=== PATIENT | male | born 1980 | race Two or more races ===

== ENCOUNTER 2020-09-14 18:05 | Emergency (ER) | payer MEDICAID ==
[~2020-09-14] VITALS: Ht 182.9 cm; Wt 111.0 kg
[2020-09-14] MEDS ORDERED: ALLO100T PO (18:14)
[2020-09-14 18:15] VITALS: BP 145/96
[2020-09-14] MEDS ORDERED: NAPROXEN 250MG TABLET PO ONE (18:30)
[2020-09-14] MEDS ORDERED: COLCHICINE 0.6MG TABLET PO ONE (18:30)
[2020-09-14] MEDS ORDERED: INDO50CA98 MT (18:31)
== END 2020-09-14 18:57 | disposition home or self-care (01) ==
LOC: ER 18:13
DX: M10.071 Idiopathic gout, right ankle and foot (principal); R03.0 Elevated blood-pressure reading, without diagnosis of hypertension
CPT/HCPCS: 73630; 99283

== ENCOUNTER 2021-09-09 17:59 | Emergency (ER) | payer MEDICAID ==
[~2021-09-09] VITALS: Ht 180.3 cm; Wt 111.0 kg
[~2021-09-09 17:59] MED LIST: ALLO100T PO; INDO50CA98 MT
[2021-09-09] MEDS ORDERED: KETOROLAC 30MG/ML VIAL IM ONE (22:30)
[2021-09-09] MEDS ORDERED: HYDR-4001 MT (22:54)
[2021-09-09 23:04] VITALS: BP 115/78
== END 2021-09-09 23:04 | disposition home or self-care (01) ==
LOC: ER 17:59
DX: M10.9 Gout, unspecified (principal)
CPT/HCPCS: 96372; 99283; J1885